=== PATIENT | male | born 1965 | race Asian ===

== ENCOUNTER → 2016-08-16 | Outpatient (CLI) | payer OTHER | END | disposition home or self-care (01) | LOC: RAD 10:21 | PROVIDERS: ATTEND Family Medicine | DX: M43.8X6 Other specified deforming dorsopathies, lumbar region (principal); R20.0 Anesthesia of skin | CPT/HCPCS: 72110 ==

== ENCOUNTER 2018-04-19 08:08 | Outpatient (CLI) | payer OTHER | END 2018-04-19 23:59 | disposition home or self-care (01) | LOC: RAD 08:08 | PROVIDERS: ATTEND Family Medicine | DX: M25.562 Pain in left knee (principal) ==